=== PATIENT | female | born 1995 | race African-American/Black ===

== ENCOUNTER 2018-06-19 20:17 | Emergency (ER) | payer MEDICAID ==
[2018-06-19 20:35] VITALS: BP 134/77
[2018-06-19 20:58] LABS: ABSOLUTE BASOPHILS # (AUTO) 0.1 10^3/uL (0.0-0.2); ABSOLUTE EOSINOPHILS # (AUTO) 0.3 10^3/uL (0.0-0.6); ABSOLUTE LYMPHOCYTES (AUTO) 2.6 10^3/uL (0.5-4.7); ABSOLUTE MONOCYTES (AUTO) 0.4 10^3/uL (0.1-1.4); ABSOLUTE NEUT (AUTO) 5.5 10^3/uL (1.7-8.2); BASOPHILS % (AUTO) 0.6 % (0-2); EOSINOPHILS % (AUTO) 2.9 % (0-6); HEMATOCRIT 33.6 % (36.0-47.0); HEMOGLOBIN 11.5 g/dL (12.0-15.5); LYMPHOCYTES % (AUTO) 29.8 % (13-45); MEAN CORPUSCULAR HEMOGLOBIN 29.4 pg (27.0-33.4); MEAN CORPUSCULAR HGB CONC 34.2 g/dL (32.0-36.0); MEAN CORPUSCULAR VOLUME 86 fl (80-97); MONOCYTES % (AUTO) 4.7 % (3-13); PLATELET COUNT 343 10^3/uL (150-450); RED BLOOD COUNT 3.91 10^6/uL (3.72-5.28); RED CELL DISTRIBUTION WIDTH 16.5 % (11.5-14.0); TOTAL CELLS COUNTED % (AUTO) 100 %; WHITE BLOOD COUNT 8.8 10^3/uL (4.0-10.5)
[2018-06-19 21:07] LABS: APPEARANCE,URINE CLEAR; BILIRUBIN,URINE NEGATIVE (NEGATIVE); COLOR,URINE STRAW; GLUCOSE, URINE NEGATIVE (NEGATIVE); KETONES,URINE NEGATIVE (NEGATIVE); LEUKOCYTE ESTERASE,URINE TRACE (NEGATIVE); NITRITE,URINE NEGATIVE (NEGATIVE); PROTEIN,URINE NEGATIVE (NEGATIVE); URINE SPECIFIC GRAVITY 1.023
[2018-06-19 21:16] LABS: ALANINE AMINOTRANSFERASE 21 U/L (9-52); ALBUMIN 3.8 g/dL (3.5-5.0); ALKALINE PHOSPHATASE 79 U/L (38-126); ANION GAP 11 (5-19); ASPARTATE AMINO TRANSFERASE 14 U/L (14-36); BILIRUBIN,DIRECT 0.1 mg/dL (0.0-0.4); BILIRUBIN,TOTAL 0.3 mg/dL (0.2-1.3); BLOOD UREA NITROGEN 16 mg/dL (7-20); CALCIUM 9.8 mg/dL (8.4-10.2); CARBON DIOXIDE 22 mmol/L (22-30); CHLORIDE 107 mmol/L (98-107); GLUCOSE 104 mg/dL (75-110); LIPASE 47.9 U/L (23-300); POTASSIUM 4.1 mmol/L (3.6-5.0); SODIUM 139.7 mmol/L (137-145); TOTAL PROTEIN 7.3 g/dL (6.3-8.2)
--- NOTE | 2018-06-19 22:02 | ER Document Report ---
ED General - General Chief Complaint: Abdominal Pain Stated Complaint: ABDOMINAL PAIN Time Seen by Provider: 06/19/18 21:51 Mode of Arrival: Ambulatory Information source: Patient Notes: 23-year-old female who presents with request confirmation of . She reports a home positive test. Patient also complaining of nausea but denies vomiting, abdominal pain, vaginal bleeding. Her last menstrual period was at the beginning of May. She is unclear of the exact date. Patient reports to be an otherwise healthy female. This would be her first . She denies any vaginal discharge, concern for STD. TRAVEL OUTSIDE OF THE [place] IN LAST 30 DAYS: No - HPI Onset: Other Quality of pain: No pain Associated symptoms: None Exacerbated by: Denies Relieved by: Denies Similar symptoms previously: No Recently seen / treated by doctor: No - Related Data Allergies/Adverse Reactions: No Known Allergies Allergy (Verified 06/19/18 22:21) Past Medical History - General Information source: Patient, [facility] Records - Social History Smoking Status: Current Every Day Smoker Cigarette use (# per day): Yes - 10 Chew tobacco use (# tins/day): No Smoking Education Provided: Yes - Smoking cessation counseling was provided for 4 minutes at the bedside Frequency of alcohol use: Social Drug Abuse: None Lives with: Family Family History: Reviewed & Not Pertinent Patient has suicidal ideation: No Patient has homicidal ideation: No Renal/ Medical History: Denies: Hx Peritoneal Dialysis Review of Systems - Review of Systems Notes: REVIEW OF SYSTEMS: CONSTITUTIONAL : Denies fever, chills, or sweats. Denies recent illness. Denies weight loss, recent hospitalizations. EENT: Denies visual changes, eye pain. Denies sore throat, oral lesions, difficulty swallowing. CARDIOVASCULAR: Denies chest pain. Denies palpitations. Denies lower extremity edema. RESPIRATORY: Denies cough. Denies shortness of breath, wheezing. GASTROINTESTINAL: Denies abdominal pain or distention. Denies vomiting, or diarrhea. Denies blood in vomitus, stools, or per rectum. Denies black, tarry stools. Denies constipation. GENITOURINARY: Denies difficulty urinating, painful urination, frequency, blood in urine, or vaginal discharge. MUSCULOSKELETAL: Denies back or neck pain or stiffness. Denies joint pain or swelling. SKIN: Denies rash, lesions or sores. HEMATOLOGIC : Denies easy bruising or bleeding. LYMPHATIC: Denies swollen glands. NEUROLOGICAL: Denies confusion or altered mental status. Denies loss of consciousness. Denies dizziness or lightheadedness. Denies headache. Denies weakness or paralysis. Denies problems difficulty with ambulation, slurred speech. Denies sensory loss, numbness, or tingling. Denies seizures. PSYCHIATRIC: Denies anxiety or stress. Denies depression, suicidal ideation, or homicidal ideation. Denies visual or auditory hallucinations. Physical Exam - Vital signs Vitals: Temp Pulse Resp BP Pulse Ox 98.9 F 93 16 134/77 H 99 06/19/18 20:31 06/19/18 20:31 06/19/18 20:31 06/19/18 20:31 06/19/18 20:31 Interpretation: Hypertensive. No: Hypoxic, Febrile - Notes Notes: Patient PHYSICAL EXAMINATION: GENERAL: Well-appearing, well-nourished and in no acute distress. HEAD: Atraumatic, normocephalic. EYES: Pupils equal round and reactive to light, extraocular movements intact, conjunctiva are normal. ENT: Nares patent, oropharynx clear without exudates. Moist mucous membranes. NECK: Normal range of motion, supple without lymphadenopathy LUNGS: Breath sounds clear to auscultation bilaterally and equal. No wheezes rales or rhonchi. HEART: Regular rate and rhythm without murmurs ABDOMEN: Soft, nontender, nondistended abdomen. No guarding, no rebound. No masses appreciated. Female : deferred, no complaints Musculoskeletal: Normal range of motion, no pitting or edema. No cyanosis. NEUROLOGICAL: Cranial nerves grossly intact. Normal speech, normal gait. Normal sensory, motor exams PSYCH: Normal mood, normal affect. SKIN: Warm, Dry, normal turgor, no rashes or lesions noted. Course - Re-evaluation Re-evalutation: 06/21/18 14:21 Laboratory 06/19/18 06/19/18 06/19/18 20:43 20:43 20:43 WBC 8.8 RBC 3.91 Hgb 11.5 L Hct 33.6 L MCV 86 MCH 29.4 MCHC 34.2 RDW 16.5 H Plt Count 343 Seg Neutrophils % 62.0 Lymphocytes % 29.8 Monocytes % 4.7 Eosinophils % 2.9 Basophils % 0.6 Absolute Neutrophils 5.5 Absolute Lymphocytes 2.6 Absolute Monocytes 0.4 Absolute Eosinophils 0.3 Absolute Basophils 0.1 Sodium 139.7 Potassium 4.1 Chloride 107 Carbon Dioxide 22 Anion Gap 11 BUN 16 Creatinine 0.83 Est GFR ( Amer) > 60 Est GFR (Non-Af Amer) > 60 Glucose 104 Calcium 9.8 Total Bilirubin 0.3 Direct Bilirubin 0.1 Neonat Total Bilirubin Not Reportable Neonat Direct Bilirubin Not Reportable Neonat Indirect Bili Not Reportable AST 14 ALT 21 Alkaline Phosphatase 79 Total Protein 7.3 Albumin 3.8 Lipase 47.9 Serum HCG, Qual POSITIVE H Beta HCG, Quant Total Beta HCG Urine Color Urine Appearance Urine pH Ur Specific [place] Urine Protein Urine Glucose (UA) Urine Ketones Urine Blood Urine Nitrite Urine Bilirubin Urine Urobilinogen Ur Leukocyte Esterase Urine WBC (Auto) Urine RBC (Auto) Squamous Epi Cells Auto Urine Mucus (Auto) Urine Ascorbic Acid 06/19/18 06/19/18 20:43 20:43 WBC RBC Hgb Hct MCV MCH MCHC RDW Plt Count Seg Neutrophils % Lymphocytes % Monocytes % Eosinophils % Basophils % Absolute Neutrophils Absolute Lymphocytes Absolute Monocytes Absolute Eosinophils Absolute Basophils Sodium Potassium Chloride Carbon Dioxide Anion Gap BUN Creatinine Est GFR ( Amer) Est GFR (Non-Af Amer) Glucose Calcium Total Bilirubin Direct Bilirubin Neonat Total Bilirubin Neonat Direct Bilirubin Neonat Indirect Bili AST ALT Alkaline Phosphatase Total Protein Albumin Lipase Serum HCG, Qual Beta HCG, Quant 175.57 H Total Beta HCG POSITIVE Urine Color STRAW Urine Appearance CLEAR Urine pH 5.0 Ur Specific [place] 1.023 Urine Protein NEGATIVE Urine Glucose (UA) NEGATIVE Urine Ketones NEGATIVE Urine Blood LARGE H Urine Nitrite NEGATIVE Urine Bilirubin NEGATIVE Urine Urobilinogen 2.0 H Ur Leukocyte Esterase TRACE H Urine WBC (Auto) 6 Urine RBC (Auto) 12 Squamous Epi Cells Auto 14 Urine Mucus (Auto) RARE Urine Ascorbic Acid NEGATIVE 23-year-old female presents for confirmation of after performing a home test that was positive. Patient believes her last menstrual period was at the beginning of May approximately 4 weeks ago. This is the patient's first . Her only complaint at this time is nausea. She denies any abdominal pain, vaginal bleeding, vaginal discharge. CBC is without leukocytosis or anemia. CMP is without electrolyte abnormalities and shows normal kidney and renal function. HCG quant is only 175. Patient given resources for care. Patient was evaluated and treated as appropriate for the patient's presenting symptoms and complaint, with consideration of any critical or life threatening conditions that may be associated with their obtained history and exam as noted above. All results were discussed with patient. Patient provided the opportunity to ask questions, and express concerns. Patient was educated on treatments based on their presumed diagnosis as noted above. At this time we will discharge the patient with return precautions and follow-up recommendations. Verbal discharge instructions given a the bedside. Medication warnings reviewed. Patient is in agreement with this plan and has verbalized understanding of return precautions. After careful consideration I feel that that patient can be safely discharged from the emergency department, they were advised to followup with a primary care physician in 2-3 days. Dictation on this chart was performed using voice recognition software and may result in unintended grammatical, spelling, syntax or errors. - Vital Signs Vital signs: Temp Pulse Resp BP Pulse Ox 98.9 F 93 16 134/77 H 99 06/19/18 20:31 06/19/18 20:31 06/19/18 20:31 06/19/18 20:31 06/19/18 20:31 - Laboratory Result Diagrams: 06/19/18 20:43 06/19/18 20:43 Laboratory results interpreted by me: 06/19/18 06/19/18 06/19/18 20:43 20:43 20:43 Hgb 11.5 L Hct 33.6 L RDW 16.5 H Serum HCG, Qual POSITIVE H Beta HCG, Quant Urine Blood LARGE H Urine Urobilinogen 2.0 H Ur Leukocyte Esterase TRACE H 06/19/18 20:43 Hgb Hct RDW Serum HCG, Qual Beta HCG, Quant 175.57 H Urine Blood Urine Urobilinogen Ur Leukocyte Esterase Discharge - Discharge Clinical Impression: Nausea, First trimester , Elevated blood pressure reading Condition: Good Disposition: HOME, SELF-CARE Instructions: Nausea or Vomiting, Nonspecific ([facility]), ([facility]) Prescriptions: Ondansetron [Zofran Odt 4 mg Tablet] 1 tab PO Q6H PRN #10 tab.rapdis PRN Reason: For Nausea/Vomiting Pnv No.103/Folic/Om3s/Fish Oil [ Gummies] 1 each PO ASDIR #30 tab.chew Forms: Elevated Blood Pressure Referrals: CORNEL,JULIAN R, MD [ACTIVE STAFF] - [facility] - Follow up in 3-5 days
[2018-06-19] MEDS ORDERED: ONDANSETRON 4 MG TAB.RAPDIS PO ONE (22:07)
== END 2018-06-19 22:21 | disposition home or self-care (01) ==
LOC: ER 20:17
DX: O26.891 Other specified pregnancy related conditions, first trimester (principal); R11.0 Nausea; O99.331 Smoking (tobacco) complicating pregnancy, first trimester; F17.210 Nicotine dependence, cigarettes, uncomplicated; Z71.6 Tobacco abuse counseling; Z3A.01 Less than 8 weeks gestation of pregnancy
CPT/HCPCS: 99284; 36415; 84702; 83690; 84703; 85025; 80053; 81001; S0119